=== PATIENT | female | born 1995 ===

== ENCOUNTER 2016-11-26 14:47 | Emergency (ER) | payer MEDICAID, OTHER ==
[2016-11-26 15:47] LABS: URINE BACTERIA RARE (<OCC); URINE BILIRUBIN NEGATIVE (NEGATIVE); URINE BLOOD 3+ (NEGATIVE); URINE COLOR Amber (YELLOW); URINE GLUCOSE (UA) NORMAL (Normal); URINE KETONE 1+ mg/dL (NEGATIVE); URINE LEUKOCYTE ESTERASE 2+ Leu/uL (Negative); URINE PROTEIN 1+ mg/dL (NEGATIVE); URINE UROBILINOGEN NORMAL mg/dL (0.2-1.0); WBC URINE 44 /hpf (0-5)
[2016-11-26 15:49] LABS: RBC URINE 50 /hpf (0-3)
--- NOTE | 2016-11-26 16:30 | US ---
PROCEDURE: Limited ultrasound HISTORY: 14 wks bleeding no pain COMPARISON: None available. TECHNIQUE: Standard protocol for this study/examination. FINDINGS: Variable presentation. Fundal/posterior Placenta. No evidence of abruption or previa Gestational age derived from LMP 14 weeks 1 day. WANG 05/26/2017. Gestational age derived from the following biometric parameters fourteen weeks 5 days. WANG 05/22/2017 . Biparietal diameter 2.8 cm Head circumference9.7 cm Abdominal circumference 8.5 cm Femur length 1.4 cm Estimated weight 99.9 g Calculated cardiac rate 155 beats per min. Closed cervix measuring 3.50 cm IMPRESSION: 14 weeks 5 days Live intrauterine gestation. Gestational concordance documented.
[2016-11-26 16:49] VITALS: BP 120/62; PULSE 99; RESP 16; TEMP 98.6; O2SAT 99
--- NOTE | 2016-11-26 17:54 | C.PDOC ---
History Of Present Illness 21 year old patient presents to the ED complaining of vaginal bleeding with associated slight pain since this afternoon. Patient is 14 weeks ; 3 para 2. Patient had a prior ultrasound, but no results are known. Patient denies fever, abdominal pain, nausea, vomiting, diarrhea, shortness of breath, or urinary symptoms. Time Seen by Provider: 11/26/16 15:20 Chief Complaint (Nursing): Female Genitourinary History Per: Patient History/Exam Limitations: no limitations Onset/Duration Of Symptoms: Hrs (this afternoon) Current Symptoms Are (Timing): Still Present Severity: Mild Recent travel outside of the [place]: No Additional History Per: Patient, Prior Records Abnormal Vaginal Bleeding: Yes : 3 Para: 2 Past Medical History Reviewed: Historical Data, Nursing Documentation, Vital Signs Vital Signs: Last Vital Signs Temp 98.6 F 11/26/16 16:48 Pulse 99 H 11/26/16 16:48 Resp 16 11/26/16 16:48 BP 120/62 11/26/16 16:48 Pulse Ox 99 11/26/16 18:06 - Medical History PMH: Asthma Family History: States: Unknown Family Hx - Social History Hx Alcohol Use: No Hx Substance Use: No Review Of Systems Except As Marked, All Systems Reviewed And Found Negative. Constitutional: Negative for: Fever Respiratory: Negative for: Shortness of Breath Gastrointestinal: Negative for: Nausea, Vomiting, Abdominal Pain, Diarrhea Genitourinary: Positive for: Vaginal Bleeding. Negative for: Dysuria Physical Exam - Physical Exam Appears: Non-toxic, No Acute Distress Skin: Warm, Dry Head: Atraumatic, Normacephalic Oral Mucosa: Moist Neck: Normal ROM, Supple Chest: Symmetrical Cardiovascular: Rhythm Regular Respiratory: Normal Breath Sounds Gastrointestinal/Abdominal: Soft, No Tenderness, No Guarding, No Rebound Extremity: Normal ROM Neurological/Psych: Oriented x3, Normal Speech, Normal Cognition Gait: Steady ED Course And Treatment O2 Sat by Pulse Oximetry: 99 (room air) Pulse Ox Interpretation: Normal - CT Scan/US OB (limited) US Other Rad Studies (CT/US): Read By Radiologist (Dr. Barr, Ajay BUCKLEY), Radiology Report Reviewed CT/US Interpretation: PROCEDURE: Limited ultrasound. HISTORY: 14 wks bleeding no pain. COMPARISON: None available. TECHNIQUE: Standard protocol for this study/examination. FINDINGS: Variable presentation. Fundal/ posterior Placenta. No evidence of abruption or previa. Gestational age derived from LMP 14 weeks 1 day. WANG 05/26/2017. Gestational age derived from the following biometric parameters fourteen weeks 5 days. WANG 05/22/2017 . Biparietal diameter 2.8 cm. Head circumference9.7 cm. Abdominal circumference 8.5 cm. Femur length 1.4 cm. Estimated weight 99.9 g. Calculated cardiac rate 155 beats per min. Closed cervix measuring 3.50 cm. IMPRESSION: 14 weeks 5 days Live intrauterine gestation. Gestational concordance documented. Medical Decision Making Medical Decision Making: Plan: * Labs * OB (limited) US * Reassess and disposition Progress: Results of US and bhcg discussed with pt, as well as need for follow in 2 days Disposition - Disposition Disposition: HOME/ ROUTINE Disposition Time: 00:00 Condition: GOOD Additional Instructions: follow up with ob md IN 2 - 3 DAYS Return for any new or worsening symptoms Instructions: Threatened Miscarriage (ED) - Clinical Impression Clinical Impression: Second trimester bleeding - Scribe Statement The provider has reviewed the documentation as recorded by the Tyrone Durbin Provider Attestation: All medical record entries made by the Tatyanaibsimon were at my direction and personally dictated by me. I have reviewed the chart and agree that the record accurately reflects my personal performance of the history, physical exam, medical decision making, and the department course for this patient. I have also personally directed, reviewed, and agree with the discharge instructions and disposition.
== END 2016-11-26 17:09 | disposition home or self-care (01) ==
LOC: C.ER 14:47
DX: O20.8 Other hemorrhage in early pregnancy (principal); Z3A.14 14 weeks gestation of pregnancy

== ENCOUNTER 2017-03-09 20:00 | Emergency (ER) | payer MEDICAID, OTHER ==
--- NOTE | 2017-03-09 20:40 | OBHP ---
Datetime: 03/09/2017 20:24 IP Adm Impression: , intrauterine ; No Active Labor IP Chief Complaint Other: LUQ discomfort IP Admit Plan: Discharge home Admit Comment, IP Provider: chief complaint- LUQ pain HPI 22 y/o at 28 weeks and 6 days with c/o left upper quadrant pain for last 2 days.Patient d enies taking any pain meds.feels discomfort at one location course uncomplicated PMH asthma PSH csection OBGYN HX ; [id number] Social hx denies tobacco,alcohol or illicit drug use Exam see exam section A/P 22 y/o at 28.6 wga with c/o luq pain.On exam no signs of acute abdomen.No signs of labor. clinically maternal discomfort with -patient reassured -follow up in clinic next week -return to er if you have fever, pain scanlon snot get better, or any other problems Pelvic Type - PN: Adequate Extremities - PN: Normal Abdomen - PN: Normal Back - PN: Normal Lungs - PN: Normal Heart - PN: Normal Neurologic - PN: Normal General - PN: Normal Contraction Comments Provider: none Gestation - Est Wks by US: 28.6 EGA AdmitDate IP: 28.6 Vital Signs Provider: Reviewed; Within Normal Limits IP Chief Complaint: Other FHR Category Provider Fetus A: Category I Dilatation, Provider: 0 Effacement, Provider: thick Station, Provider: high Genitourinary Exam: Normal DTRs - PN: Normal
[2017-03-10 04:27] VITALS: BP 102/60; PULSE 93; RESP 18; TEMP 98.2; O2SAT 98
== END 2017-03-09 20:35 | disposition home or self-care (01) ==
LOC: C.EROB 20:00
DX: O75.89 Other specified complications of labor and delivery (principal); Z3A.28 28 weeks gestation of pregnancy